=== PATIENT | male | born 2000 | race Caucasian/White ===

== ENCOUNTER 2024-07-13 02:58 | Emergency (ER) | payer MEDICAID, SELFPAY ==
[2024-07-13] VITALS (7 sets, daily range): BP systolic 128–137; BP diastolic 72–76; PULSE 76–100; RESP 15–21; TEMP 36.7; O2SAT 97–100
--- NOTE | ~2024-07-13 | XR_ITS ---
Portable chest x-ray Comparison: None Clinical History: Palpitations Findings: Lungs are clear, without focal consolidation or pleural effusion. Cardiomediastinal silho uette is unremarkable. Bones and soft tissues are unremarkable. Impression: Normal chest. Reviewed, dictated and finalized at location M. Impression: Normal chest.
--- NOTE | 2024-07-13 03:04 | ECG_ITS ---
Test Date: 2024-07-13 03:06:51 Measurements Intervals [place] Rate: 88 P: 50 OR: 179 QRS: 49 QRSD: 106 T: 48 QT: 372 QTc: 451 Interpretive Statements SINUS RHYTHM WITH MARKED SINUS ARRHYTHMIA BASELINE ARTIFACT- I, II NORMAL ECG No previous ECG available for comparison Electronically Signed On 07-13-2024 17:23:58 CDT by Shaun Coleman D.O.
--- NOTE | 2024-07-13 03:31 | ED.GENADULT ---
HPI - General Adult General Chief complaint: Arrhythmia/Palpitations Stated complaint: CHEST DISCOMFORT, HEART POUNDING, ARM NUMBNESS Time Seen by Provider: 07/13/24 02:59 History of Present Illness HPI narrative: This is a 23-year-old male history of anxiety presenting for an anxiety attack. Patient had 3 C4 energy drinks and a tiny red bull before going to arrived on the concert. Patient felt with the music was beating in his heart. It caused him to have palpitations and significant anxiety associated with arm numbness. He left the concert and when he was trying to go to sleep at night he started to have a panic attack and called EMS. Patient's symptoms have since resolved and he is feeling better. Patient has had panic attacks like this in past. He references his time in the as a possible cause/ trigger. Related Data Home Medications Medication Instructions Recorded Confirmed No Home Medications 07/13/24 07/13/24 Allergies Allergy/AdvReac Type Severity Reaction Status Date / Time No Known Allergies Allergy Verified 07/13/24 03:07 Exam Narrative: APPEARANCE: No apparent distress. Head: atraumatic. EYES: EOMI, NOSE: Atraumatic NECK: Trachea midline RESPIRATORY: No increased rate of breathingClear to auscultation CARDIOVASCULAR: RRR, no peripheral edema ABDOMINAL: Non-distended MUSCULOSKELETAl: No obvious deformities NEURO: Alert. Moving 4/4 extremities SKIN:: Warm, dry. Normal color PSYCHIATRIC: Normal affect Course Vital Signs Vital signs: Vital Signs Temperature 98.0 F 07/13/24 02:58 Pulse Rate 90 07/13/24 02:58 Respiratory Rate 15 07/13/24 02:58 Blood Pressure 137/72 07/13/24 02:58 Pulse Oximetry 100 07/13/24 02:58 Oxygen Delivery Room Air 07/13/24 02:58 Temperature 98.0 F 07/13/24 02:58 Pulse Rate 100 07/13/24 03:05 Respiratory Rate 15 07/13/24 02:58 Blood Pressure 137/72 07/13/24 02:58 Pulse Oximetry 100 07/13/24 03:05 Oxygen Delivery Room Air 07/13/24 03:05 Medical Decision Making [facility] Narrative Medical decision making narrative: -Course: 23-year-old male presenting with chest pain difficulty breathing. Similar to panic attacks he has had in the past. Multiple triggers including a stimulating rounds on the concert and multiple energy drinks. I at this time he is symptom free. Chest x-ray and EKG unremarkable. Patient Valium for anxiolysis and discharged home with primary care follow-up. Given the return precautions -DDX includes but is not limited to: anxiety, panic disorder, ACS, pneumothorax, caffeine side-effect -Co-morbidities complicating care: anxiety -Independent interpretation of studies: chest x-ray normal Independent EKG interpretation: Rhythm [sinus], Rate [103], [place] -[normal], OR -[normal], QRS [narrow], QTC [normal], T waves -[negative for concerning inversions], ST Segments - [Negative for concerning elevations] Final interpretations: sinus tachycardia -Interventions: Valium -Shared decision making / Disposition: discharge Vital Signs Vital Signs: Vital Signs Temperature 98.0 F 07/13/24 02:58 Pulse Rate 90 07/13/24 02:58 Respiratory Rate 15 07/13/24 02:58 Blood Pressure 137/72 07/13/24 02:58 Pulse Oximetry 100 07/13/24 02:58 Oxygen Delivery Room Air 07/13/24 02:58 Temperature 98.0 F 07/13/24 02:58 Pulse Rate 100 07/13/24 03:05 Respiratory Rate 15 07/13/24 02:58 Blood Pressure 137/72 07/13/24 02:58 Pulse Oximetry 100 07/13/24 03:05 Oxygen Delivery Room Air 07/13/24 03:05 Discharge Plan Discharge Clinical Impression: Anxiety Patient Disposition: Home, Self-Care Condition: Stable Instructions: Antibiotic Form, Anxiety (ED) Additional Instructions: please follow-up with your primary care physician for further management. Return to ED if you develop chest pain difficulty breathing would like re-evaluation. Prescriptions: No Action
[2024-07-13] MEDS: diazePAM INJ (*CRX) 10 MG/2 ML SYRINGE 5 MG IV PUSH (03:34)
== END 2024-07-13 04:01 | disposition home or self-care (01) ==
PROVIDERS: Emergency Provider Emergency Medicine
DX: F41.9 Anxiety disorder, unspecified (principal)
CPT/HCPCS: 71045; 93005; 96374; 99284; J3360

== ENCOUNTER 2024-09-29 23:44 | Emergency (ER) | payer MEDICAID, SELFPAY ==
--- NOTE | ~2024-09-29 | XR_ITS ---
Portable chest x-ray Comparison: 07/13/2024 Clinical History: Chest pain Findings: Lungs are clear, without focal consolidation or pleural effusion. Cardiomediastinal silho uette is stable. Bones and soft tissues are unremarkable. Impression: Normal chest. Reviewed, dictated and finalized at [facility]. ERNMAKER Impression: Normal chest.
--- NOTE | 2024-09-29 23:44 | ECG_ITS ---
Test Date: 2024-09-29 23:56:14 Measurements Intervals [place] Rate: 75 P: 51 [place]: 167 QRS: 61 QRSD: 102 T: 56 QT: 361 QTc: 403 Interpretive Statements SINUS RHYTHM WITH SINUS ARRHYTHMIA NORMAL ECG Compared to ECG 07/13/2024 03:06:51 No significant changes Electronically Signed On 09-30-2024 05:55:58 RAIL CAR DRIVER by Shaun Coleman D.O.
[2024-09-29 23:50] VITALS: BP 150/83; PULSE 71; RESP 24; TEMP 36.7; O2SAT 99
[2024-09-29 23:55] VITALS: PULSE 74
--- NOTE | 2024-09-30 00:02 | ED_ITS ---
HPI - Chest Pain General Chief Complaint: Chest Pain Stated Complaint: chest pain for a few days Time Seen by Provider: 09/29/24 23:52 History of Present Illness HPI narrative: Patient is a 24-year-old male who presents to the emergency department this evening complaining of heart palpitations. Patient admits that he has had similar symptoms in the and patient was seen our facility on July 13 of this year for similar symptoms and after a full workup was told that this was a likely due to anxiety. Patient states that similar symptoms started happened today around bedtime. Symptoms persisted and patient decided to come to the emergency department for further evaluation. Patient admits to smoking tobacco and marijuana but states that this is something that he has done for a long time and denies any history of IV drug use, any cocaine meth or heroin use. Patient is currently denying any shortness of breath, any chest pain, denies any history of arrhythmias and denies any significant past medical history. Denies any recent URI, any fevers or chills at home, any nausea vomiting or abdominal pain. No additional symptoms or concerns at this time. Related Data Home Medications Medication Instructions Recorded Confirmed No Home Medications 07/13/24 07/13/24 Allergies Allergy/AdvReac Type Severity Reaction Status Date / Time No Known Allergies Allergy Verified 07/13/24 03:07 Review of Systems Review of Systems: All systems are reviewed and are negative unless stated otherwise in the HPI. Exam Narrative: General: Alert, awake, afebrile, in no acute distress. HEENT: PERRL, no rhinorrhea, no post nasal drip, oropharynx clear. Neck: Trachea midline, no JVD, no lymphadenopathy. Cardiovascular: Regular rate and rhythm, no murmurs, rubs or gallops, no peripheral edema. Respiratory: Clear to auscultation bilaterally, no tachypnea, no wheezing, no rhonchi, no rubs, no respiratory distress. Abdomen: Soft, nontender, nondistended, no rebound, no guarding, no peritoneal signs. Musculoskeletal: No joint swelling or deformity, normal muscle tone. Skin: No rashes or petechia, no signs of infection. Psychiatric: Alert and oriented, normal behavior and judgment for situation. Neurological: Alert and oriented to person, place, and time. Follows all commands. No focal deficits, speech is clear and fluent. Course Vital Signs Vital signs: Vital Signs Temperature 98.0 F 09/29/24 23:50 Pulse Rate 71 09/29/24 23:50 Respiratory Rate 24 H 09/29/24 23:50 Blood Pressure 150/83 H 09/29/24 23:50 Pulse Oximetry 99 09/29/24 23:50 Oxygen Delivery Room Air 09/29/24 23:50 Temperature 98.0 F 09/29/24 23:50 Pulse Rate 85 09/30/24 01:50 Respiratory Rate 18 09/30/24 01:50 Blood Pressure 127/81 09/30/24 01:50 Pulse Oximetry 100 09/30/24 01:50 Oxygen Delivery Room Air 09/29/24 23:50 MDM - Chest Pain MDM Narrative Medical decision making narrative: The patient was evaluated by myself in the emergency department. History is obtained from patient who is an independent historian and physical exam was performed. External medical records were reviewed at this time. IV was established and pertinent tests were ordered. EKG was obtained which revealed sinus rhythm rate of 75 beats per minute. No ST changes, T wave inversions or evidence of acute ischemia. EKG was independently interpreted by me and is currently pending official cardiology read. Laboratory results obtained revealing no acute process. Imaging studies obtained included CXR which was independently interpreted by me revealing no acute cardiopulmonary process, which is pending final radiology i nterpretation. Differential diagnosis considerations include acute stress reaction, anxiety, panic attack, acute viral syndrome, arrhythmia, electrolyte derangements, dehydration. Comorbidities impacting this visit include history of anxiety. I have evaluated and discussed social determinants of health with the patient that could potentially impact subsequent diagnosis and treatment plans. On repeat assessment of the patient, reevaluation revealed that the patient is doing well and is in no acute distress. Patient symptoms have improved since he arrived to our emergency department. Repeat vital signs were all reviewed and noted to be stable. Differential diagnosis and treatment plan were discussed with the patient at bedside. Patient agrees with discussion and after shared medical decision making agrees with discharge. All questions were answered to the patient's satisfaction. Patient will follow up with his cardiology in 3-5 days. Patient was also informed that marijuana could be precipitating his symptoms and encouraged to stop smoking marijuana. You were also provided with a accounting software specialist and instructed to call to set up a follow-up appointment regarding your palpitat ions. Patient was provided with strict return precautions and instructed to return to the emergency department if any new or worsening symptoms develop. The patient was discharged in stable condition. Lab Data 09/30/24 00:17 09/30/24 00:17 Labs: Lab Results 09/30/24 Range/Units 00:17 WBC 13.6 H (4.5-10.0) K/mm3 RBC 4.65 (4.6-6.20) M/mm3 Hgb 14.8 (14.0-18.0) g/dL Hct 42.3 (42.0-52.0) % MCV 91.0 (80-100) fl MCH 31.8 (26-34) pg MCHC 35.0 (32-36) g/dl RDW 11.9 (11.5-14.5) % Plt Count 308 (150-375) k/mm3 MPV 10.5 H (7.4-10.4) fl Immature Gran % (Auto) 0.4 (0-0.5) % Neut % (Auto) 67.1 (45.5-73.1) % Lymph % (Auto) 24.1 (18.3-44.2) % [place] % (Auto) 7.3 (2.6-8.5) % Eos % (Auto) 0.4 (0-4.4) % Baso % (Auto) 0.7 (0.2-1.2) % Lymph # (Auto) 3.26 H (0.9-3.2) K/mm3 [place] # (Auto) 1.0 H (0.1-0.6) K/mm3 Eos # (Auto) 0.1 (0-0.3) K/mm3 Baso # (Auto) 0.1 (0.0-0.1) K/mm3 Abs Immat Gran (auto) 0.06 H (0.00-0.031) K/mm3 Absolute Neuts (auto) 9.1 H (1.3-6.7) K/mm3 Absolute Nucleated RBC 0.000 (0.0-0.012) K/mm3 Nucleated RBC % 0.0 (0.0-0.2) % PT 14.6 (11.1-14.7) Seconds INR 1.1 APTT 25.8 (22.3-36.8) Seconds Sodium 143 (137-145) mmol/L Potassium 3.5 (3.4-5.0) mmol/L Chloride 106 (98-107) mmol/L Carbon Dioxide 28 (22-30) mmol/L Anion Gap 9 (4-12) mmol/L BUN 10 (9-20) mg/dL Creatinine 0.80 (0.7-1.3) mg/dL Estim Creat Clear Calc 130 ml/min Estimated GFR > 60 (59 - ) Glucose 127 H (65-110) mg/dL Calcium 9.6 (8.4-10.2) mg/dL Magnesium 2.3 (1.6-2.3) mg/dL Total Bilirubin 0.6 (0.2-1.3) mg/dL AST 28 (17-59) U/L ALT 32 (6-50) U/L Alkaline Phosphatase 67 (38-126) U/L Troponin I < 0.012 (0.000-0.034) ng/mL Total Protein 9.0 H (6.3-8.2) g/dL Albumin 5.2 H (3.5-5.1) g/dL Lipase 65 (23-300) U/L Discharge Plan Discharge Clinical Impression: Heart palpitations Patient Disposition: Home, Self-Care Condition: Improved Instructions: Antibiotic Form, Heart Palpitations (ED) Additional Instructions: Please follow-up with the accounting software specialist who provided with today regarding your heart palpitations. You were also instructed that smoking marijuana could be precipitating your symptoms. Return to the emerged department if any new or worsening symptoms develop. Prescriptions: No Action No Home Medications Follow-up/Referrals: Lorenzo Mcallister MD [Physician] - 3 Days UNKNOWN,DOCTOR [Primary Care Provider] - Time of Disposition: 01:39
[2024-09-30 00:36] LABS: Basophils Absolute Auto 0.1 K/mm3 (0.0-0.1); Basophils Percent Auto 0.7 % (0.2-1.2); Eosinophils Absolute Auto 0.1 K/mm3 (0-0.3); Eosinophils Percent Auto 0.4 % (0-4.4); Hematocrit 42.3 % (42.0-52.0); Hemoglobin 14.8 g/dL (14.0-18.0); Immature Granulocyte Absolute 0.06 K/mm3 (0.00-0.031); Immature Granulocyte Percent A 0.4 % (0-0.5); Lymphocytes Absolute Auto 3.26 K/mm3 (0.9-3.2); Lymphocytes Percent Auto 24.1 % (18.3-44.2); Magnesium 2.3 mg/dL (1.6-2.3); Mean Corpuscular Hemoglobin 31.8 pg (26-34); Mean Platelet Volume 10.5 fl (7.4-10.4); Monocytes Percent Auto 7.3 % (2.6-8.5); Neutrophils Absolute Auto 9.1 K/mm3 (1.3-6.7); Neutrophils Percent Auto 67.1 % (45.5-73.1); Platelet Count Result 308 k/mm3 (150-375); Red Blood Count 4.65 M/mm3 (4.6-6.20); Red Cell Distribution Width 11.9 % (11.5-14.5); White Blood Count 13.6 K/mm3 (4.5-10.0)
--- NOTE | 2024-09-30 00:41 | PC.NURSE ---
ok to not give aspirin per edp [facility]
[2024-09-30 00:42] LABS: Alanine Aminotransferase 32 U/L (6-50); Albumin Level 5.2 g/dL (3.5-5.1); Alkaline Phosphatase 67 U/L (38-126); Anion Gap 9 mmol/L (4-12); Aspartate Amino Transferase 28 U/L (17-59); Bilirubin,Total 0.6 mg/dL (0.2-1.3); Blood Urea Nitrogen 10 mg/dL (9-20); Calcium 9.6 mg/dL (8.4-10.2); Carbon Dioxide 28 mmol/L (22-30); Chloride 106 mmol/L (98-107); Estimated CRCL calculation 130 ml/min; Estimated Glomerular Filt Rate > 60; Glucose 127 mg/dL (65-110); Lipase 65 U/L (23-300); Potassium 3.5 mmol/L (3.4-5.0); Sodium 143 mmol/L (137-145)
[2024-09-30 00:45] LABS: INR 1.1; Prothrombin Time 14.6 Seconds (11.1-14.7)
[2024-09-30 00:46] LABS: Partial Thromboplastin Time 25.8 Seconds (22.3-36.8)
[2024-09-30 00:53] LABS: Troponin I < 0.012 ng/mL (0.000-0.034)
[2024-09-30 01:45] VITALS: BP 142/80; PULSE 69; RESP 20; O2SAT 100
[2024-09-30 01:48] VITALS: RESP 18; O2SAT 98
[2024-09-30 01:50] VITALS: BP 127/81; PULSE 85; RESP 18; O2SAT 100
== END 2024-09-30 01:51 | disposition home or self-care (01) ==
PROVIDERS: Emergency Provider Emergency Medicine
DX: R00.2 Palpitations (principal); F17.200 Nicotine dependence, unspecified, uncomplicated
CPT/HCPCS: 36415; 71045; 80053; 83690; 83735; 84484; 85025; 85610; 85730; 93005; 99284

== ENCOUNTER 2025-03-19 22:24 | Emergency (ER) | payer SELFPAY ==
--- OUTSIDE RECORDS SUMMARY | 2025-03-19 22:26 | XMS_ITS | Clinical Summary ---
Author Organization [facility] Address [address] [place] [address] Phone Care Team Providers Care Spa Concierge Name Role Phone Provider, None Primary Care Provider Unavailabl e Allergies No known active allergies Medications No known medications Active Problems Problem Noted Date Diagnosed Date Serum calcium elevated 10/26/2024 Musculoskeletal chest pain 10/26/2024 Alcohol use 10/26/2024 Cannabis use disorder 10/26/2024 Immunizations Immunization Administration Dates Next Due Influenza,Split Virus,Trivalent,Injectable,PF Family History Medical History Relation Name Comments Hepatitis Father Relation Name Status Comments Father Alive Mother Alive Social History Tobacco Use Types Packs/Day Years Used Date Smoking Tobacco: Former Cigarettes Smokeless Tobacco: Never Tobacco Cessation:Counseling Given: Not Answered Alcohol Use Standard Drinks/Week Comments Not Currently 0 (1 standard drink = 0.6 oz pur e alcohol) PHQ-2 Answer Date Recorded Total Score - Questions 1-9 0 10/11 Sexually Active Control Partners Comments Yes Sex and Gender Information Value Date Recorded Sex Assigned at Male 10/23/2024 11:53 PM SURGERY SPECIALIST Legal Sex Male 11:07 PM CDT Gender Identity Male 10/23/2024 11:53 PM SURGERY SPECIALIST Sexual Orientation Not on file Last Filed Vital Signs Vital Sign Reading Time Taken Comments Blood Pressure 129/90 10/26/2024 3:04 PM SURGERY SPECIALIST Pulse 99 10/26/2024 3:04 PM SURGERY SPECIALIST Temperature 36.4 C (97.5 F) 10/26/2024 3:04 PM SURGERY SPECIALIST Respiratory Rate 12 10/26/2024 3:04 PM SURGERY SPECIALIST Oxygen Saturation 99% 10/26/2024 3:04 PM SURGERY SPECIALIST Inhaled Oxygen Concentration - - Weight 78 kg (171 lb 14.4 oz) 10/26/2024 3:04 PM SURGERY SPECIALIST Height 177.8 cm (5' 10 ) 10/26/2024 3:04 PM SURGERY SPECIALIST Body Mass Index 24.67 10/26/2024 3:04 PM SURGERY SPECIALIST Plan of Treatment Health Maintenance Due Date Last Done Comments Hepatitis C Virus (HCV) Screening 2002 Meningococcal B Immunization (1 of 2 - Standard) 2018 SARS-COV-2 Immunization (3 - season) 2024 04/22/2021, 03/26/2021 Respiratory Syncytial Virus (RSV) Immunization (Adult) (1 - 1-dose 75+ series) 2077 Pneumococcal Immunization Combined Aged Out 2002, 2002 No longer eligibl e based on patient's age to complete this topic Human Papillomavirus (HPV) Immunization Completed 02/03/2016, 08/08/2015, 05/27/2015 Meningococcal Immunization (ACWY) Completed 12/16/2020, 11/20/2013 TdaP Immunization Completed 12/16/2020, 10/29/2012 Hepatitis B Immunization Completed 021, 01/24/2021, 12/16/2020, Additional history exists Influenza Immunization Completed 4, 09/26/2021, 12/16/2020, Additional history exists Rotavirus Immunization Aged Out No lo nger eligible based on patient's age [place] [address] [place]ICAID [place] Care Teams Spa Concierge Relationship Specialty Start Date End Date Provider, None [place] PCP - General 10/24/24
[2025-03-19 22:35] VITALS: BP 140/79; PULSE 138; RESP 20; TEMP 36.6; O2SAT 97
--- NOTE | 2025-03-19 22:35 | ECG_ITS ---
Test Date: 2025-03-19 22:38:10 Measurements Intervals [place] Rate: 128 P: 45 [place]: 157 QRS: 80 QRSD: 91 T: 30 QT: 290 QTc: 424 Interpretive Statements SINUS TACHYCARDIA ABNORMAL RHYTHM ECG Compared to ECG 09/29/2024 23:56:14 Sinus rhythm no longer present Sinus arrhythmia no longer present Electronically Signed On 03-20-2025 15:40:08 CDT by Nitish Hughes M.D.
--- NOTE | 2025-03-20 01:05 | PC.NURSE ---
Patient called for repeat VS, no answer and not seen in waiting room or outside. Patient marked as left without being seen, triaged.
--- OUTSIDE RECORDS SUMMARY | 2025-03-20 01:11 | XMS_ITS | Clinical Summary ---
Author Organization [facility] Address [address] [place] [address] Phone Care Team Providers Care Gate Agent Name Role Phone Provider, None Primary Care [...] Sex Assigned at Male 10/23/2024 11:53 PM CREDIT CONTROL ASSISTANT Legal Sex Male 11:07 PM CDT Gender Identity Male 10/23/2024 11:53 PM CREDIT CONTROL ASSISTANT Sexual Orientation Not on file Last Filed Vital Signs Vital Sign Reading Time Taken Comments Blood Pressure 129/90 10/26/2024 3:04 PM CREDIT CONTROL ASSISTANT Pulse 99 10/26/2024 3:04 PM CREDIT CONTROL ASSISTANT Temperature 36.4 C (97.5 F) 10/26/2024 3:04 PM CREDIT CONTROL ASSISTANT Respiratory Rate 12 10/26/2024 3:04 PM CREDIT CONTROL ASSISTANT Oxygen Saturation 99% 10/26/2024 3:04 PM CREDIT CONTROL ASSISTANT Inhaled Oxygen Concentration - - Weight 78 kg (171 lb 14.4 oz) 10/26/2024 3:04 PM CREDIT CONTROL ASSISTANT Height 177.8 cm (5' 10 ) 10/26/2024 3:04 PM CREDIT CONTROL ASSISTANT Body Mass Index 24.67 10/26/2024 3:04 PM CREDIT CONTROL ASSISTANT Plan of Treatment Health Maintenance Due Date [...] patient's age to complete [place] [address] MEDICAID [id number] Care Teams Gate Agent Relationship Specialty Start Date End Date Provider, None [place] PCP - General 10/24/24
== END 2025-03-20 01:19 | disposition left against medical advice (07) ==
LOC: ANHED 03-20 01:08
PROVIDERS: Emergency Provider Emergency Medicine
DX: R00.2 Palpitations (principal)
CPT/HCPCS: 93005; 99199